=== PATIENT | male | born 1965 | race Caucasian/White ===

== ENCOUNTER 2017-01-16 16:13 | Emergency (ER) | payer OTHER, BC ==
[~2017-01-16] VITALS: Ht 177.8 cm; Wt 112.0 kg
[~2017-01-16 16:13] MED LIST: ASPI-558 PO; CHON250C PO; DEXA4VIA IV; INSU100V20; INSU100V28 SQ; LISI-621 PO; LISI1TAB11 PO; METF-206 PO; MORP2SYR2 IV; NAPR220T61 PO
[2017-01-16 16:16] VITALS: Ht 177.8 cm; Wt 112.0 kg
--- NOTE | 2017-01-16 16:16 | NUR ---
PROVIDER Kira MARTELL APRN AT BEDSIDE FOR EXAM.
--- OUTSIDE RECORDS SUMMARY | 2017-01-16 16:17 | XMS REPORT | CCD ---
Author Author LAVERN RAZA Organization Unknown Address [address], [place] [id number] Phone 0 Care Team Providers Care Masticator Name Role Phone MICHELLE DE JESUS Attending Physician 0 Vital Signs Unknown or Not Available. Allergies Unknown or Not Available. Procedures Unknown or Not Available. History of Immunizations Unknown or Not Available. Problems Unknown or Not Available. Results COMP METABOLIC - Collect Date/Time: 02/14/2016 09:00 Test Name Code Test Result Test Units Test Ref Range GLUCOSE 136 mg/dL L=70 H=110 BUN 22 mg/dL L=7 H=18 CREATININE 1.00 mg/ dL L=0.60 H=1.30 AGE 50 YEARS GFR 78.8 SODIUM 137 mmol/L L=136 H=145 POTASSIUM 3.8 mmol/ L L=3.5 H=5.1 CHLORIDE 101 mmol/L L=98 H=107 CO2 25 mmol/L L=21 H=32 CALCIUM 9.3 mg/dL L=8.5 H=10.1 AST 17 U/L L=15 H=37 ALT 47 U/L L=12 H=78 ALKALINE PHOS 88 U/ L L=46 H=116 TOTAL PROTEIN 8.1 g/ dL L=6.4 H=8.2 ALBUMIN 4.2 g/dL L=3.4 H=5.0 TOTAL BILI 0.40 mg/ dL L=0.00 H=1.00 LDL CHOLESTEROL, DIRECT - Collect Date/Time: 02/14/2016 09:00 Test Name Code Test Result Test Units Test Ref Range LDL, DIRECT 112 mg/ dL L=0 H=100 LIPID PANEL - Collect Date/Time: 02/14/2016 09:00 Test Name Code Test Result Test Units Test Ref Range CHOLESTEROL 201 mg/ dL L=0 H=200 TRIGLYCERIDES 448 mg /dL L=30 H=150 HDL 29 mg/dL L=40 H=60 VLDL 90 mg/dL L=0 H=40 CHOL/HDL RISK 6.9 RATIO L=0.0 H=5.0 PT FASTING: YES N/A TRIG >400 NO LDL CALC N/A LDL, CALC N/A N/A Active Medications Unknown or Not Available. Medications Administered During Visit Unknown or Not Available. Encounters Encounter Diagnosis Diagnosis Code Start Date Pure hypercholesterolemia E780 2015 Social History Smoking Status Code Start Date End Date Current some day smoker [id number] Patient Decision Aids Unknown or Not Available. Discharge Instructions You were admitted to [facility] on 02/14/2016 09:11 with a principal diagnosis of Pure hypercholesterolemia You had the following tests done: COMP METABOLIC LDL CHOLESTEROL, DIRECT LIPID PANEL You were discharged from [facility] on 02/14/2016 09:11 Should you have any questions prior to discharge, please contact a member of your healthcare team. If you have left the hospital and have any questions, please contact your primary care physician. Chief Complaint and Reason For Visit Chief Complaint Date of Onset LAB Function Status Unknown or Not Available. Plan of Care Unknown or Not Available. Referral/Transition of Care Unknown or Not Available.
--- OUTSIDE RECORDS SUMMARY | 2017-01-16 16:17 | XMS REPORT ---
Author Emely Acevedo [facility] eClinicalWorks Address Unknown Phone Unavailable Care Team Providers Care Honing Job Setter Name Role Phone Emely Burrows CP Unavailable Allergies, Adverse Reactions, Alerts Substance Reaction Event Type N.K.D.A. Info Not Available Non Drug Allergy Problems Problem Type Condition ICD-9 Code Onset Dates Condition Status Problem Pure hypercholesterolemia 272.0 Active Problem Other and unspecified hyperlipidemia 272.4 Active Problem Unspecified essential hypertension 401.9 Active Assessment Impotence of organic origin 607.84 Active Problem Diabetes with other specified manifestations, type II or unspecified type, not stated as uncontrolled 250.80 Active Assessment Diabetes Mellitus Type 2, not stated as uncontrolled 250.00 Active Medications Medication Code System Code Instructions Start Date End Date Status Dosage Lisinopril-Hydrochlorothiazide [facility] [address]-30 20-25 MG Orally Once a day Takeone (1)tablet(s)daily Lipitor [facility] [address]-10 40 Milligram Takeone (1)tablet(s)daily Cialis [facility] [address]-24 20 MG Orally March 15, 2015 May 14, 2015 1 tablet Glucophage [facility] [address]-01 1000 MG Orally Twice a day 1 tablet with meals Lisinopril [facility] [address]-33 20 Milligram Orally Once a day 1 tablet Aspirin [facility] [address]-34 81 MG Orally Once a day 1 tablet Tricor [facility] [address]-26 145 MG Orally Once a day 1 tablet NovoLog [facility] [address]-71 100 UNIT/ML Subcutaneous with meals 1 unit per 10 carbs Lantus [facility] [address]-90 100 UNIT/ML Subcutaneous twice a day 80 units Procedures Procedure Coding System Code Date OFFICE VISIT, EST-LOW COMPLEXITY (15 MIN.) CPT-4 38485 March 15, 2015 HEMOGLOBIN A1C, IN HOUSE CPT-4 42520 March 15, 2015 Vital Signs Date/Time: March 15, 2015 Height 70 in Weight 224 lbs Temperature 99.0 F Blood Pressure Diastolic 70 mm Hg Blood Pressure Systolic 120 mm Hg Cardiac Monitoring Heart Rate 88 /min BMI 32.14 Index Respiratory Rate 16 /min Results Name Result Date Reference Range Unit Abnormality Flag In House HB A1c Summary Purpose eClinicalWorks Submission
--- OUTSIDE RECORDS SUMMARY | 2017-01-16 16:17 | XMS REPORT ---
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 Assessment Hyperlipidemia, unspecified E78.5 Active Problem Type 2 diabetes mellitus without complications E11.9 Active Problem Hypertension, benign 401.1 Active Problem 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 Problem Other and unspecified hyperlipidemia 272.4 Active Problem Diabetes with other specified manifestations, type II or unspecified type, not stated as uncontrolled 250.80 Active Problem Unspecified essential hypertension 401.9 Active Problem Pure hypercholesterolemia 272.0 Active Medications Medication Code System Code Instructions Start Date End Date Status Dosage Baclofen [facility] [address]-17 10 MG Orally Three times a day Nov 09, 2016 1 tablet with food or milk Tricor [facility] 41742160756 145 MG Orally Once a day TAKE ONE (1) TABLET(S) DAILY Lisinopril [facility] [address]-33 20 MG Orally Once a day 1 tablet Fish Oil [facility] [address]-51 1000 MG Orally twice a day Jul 10, 2016Jul 2 capsules potassium ND 0 Oral 1 tab Aspirin [facility] [address]-66 81 MG Orally Once a day 1 tablet Potassium Chloride Olga ER [facility] 12293439257 20 MEQ TAKE ONE TABLET BY MOUTH DAILY Lantus [facility] [address]-35 100 UNIT/ML Subcutaneous Twice a day 44 units twice a day NovoLog [facility] [address]-49 100 UNIT/ML Subcutaneous with meals TID 1 unit per 5 carbs Glucophage [facility] 60180215129 1000 MG Orally Twice a day 1 tablet with meals Lisinopril-Hydrochlorothiazide [facility] [address]-63 20-12.5 MG Orally Once a day takeone (1)tablet(s)daily Gabapentin [facility] [address]-40 100 MG Orally Three times a day 2 caps Lidocaine [facility] [address]-43 5 % Externally q 12 hrs prn 1 patch to intact skin remove after 12 hours Magnesium [facility] 390[address]763 400 MG Orally not defined Procedures Procedure Coding System Code Date IH CMP CPT-4 78078 Jul 10, 2016 IH LIPID PANEL CPT-4 24307 Jul 10, 2016 COMPLETE CBC W/AUTO DIFF WBC CPT-4 10999 Jul 10, 2016 Results No Known Results Summary Purpose eClinicalWorks Submission
--- OUTSIDE RECORDS SUMMARY | 2017-01-16 16:17 | XMS REPORT ---
Author Erica Cueto [facility] [place] eClinicalWorks Address Unknown Phone Unavailable Care Team Providers Care Vp Sales Name Role Phone Erica Alejandro CP Unavailable Allergies No Known Allergies Problems Problem Type Condition ICD-9 Code Onset Dates Condition Status Assessment Colon cancer screening V76.51 Active Assessment Diabetes with other specified manifestations, type II or unspecified type, not stated as uncontrolled 250.80 Active Assessment Unspecified viral infection, in conditions classified elsewhere and of unspecified site 079.99 Active Problem Pure hypercholesterolemia 272.0 Active Problem Other and unspecified hyperlipidemia 272.4 Active Problem Unspecified essential hypertension 401.9 Active Assessment Pure hypercholesterolemia 272.0 Active Assessment Other and unspecified hyperlipidemia 272.4 Active Problem Diabetes with other specified manifestations, type II or unspecified type, not stated as uncontrolled 250.80 Active Assessment Unspecified essential hypertension 401.9 Active Medications Medication Code System Code Instructions Start Date End Date Status Dosage Lisinopril-Hydrochlorothiazide [facility] [address]-70 0 Active Takeone (1)tablet(s)daily Lipitor [facility] [address]-30 40 Milligram Active Takeone (1)tablet(s) daily NovoLog [facility] [address]-40 100 UNIT/ML Subcutaneous with meals Active 1 unit per [address] [facility] [address]-42 81 MG Orally Once a day Active [address] [facility] [address]-58 100 UNIT/ML Subcutaneous twice a day Active [address] [facility] [address]-69 1000 MG Orally Twice a day Active 1 tablet with meals Tricor [facility] [address]-69 145 MG Orally Once a day Active [address] [facility] [address]-85 20 MG Orally Once a day Active 1 tablet Procedures Procedure Coding System Code Date OFFICE VISIT, EST-LOW COMPLEXITY (15 MIN.) CPT-4 04534 Jul 14, 2014 HEMOGLOBIN A1C, IN HOUSE CPT-4 55342 Jul 14, 2014 Vital Signs Date/Time: Jul 14, 2014 Height 70 inches Weight 221.12 lbs Temperature 97.7 F Blood Pressure Diastolic 52 mm Hg Blood Pressure Systolic 90 mm Hg Cardiac Monitoring Heart Rate 88 Beats per Minute BMI 31.72 Index Respiratory Rate 16 per Minute Results Name Result Date Reference Range Unit In House Hemoglobin A1c Summary Purpose eClinicalWorks Submission
--- OUTSIDE RECORDS SUMMARY | 2017-01-16 16:17 | XMS REPORT | CCD ---
Author Author LAVERN RAZA Organization Unknown Address [address], [place] [id number] Phone 0 Care Team Providers Care Medical I D Sales Name Role Phone NORBERTO MILES Attending Physician 0 Vital Signs Unknown or Not Available. Allergies Unknown or Not Available. Procedures Unknown or Not Available. History of Immunizations Unknown or Not Available. Problems Unknown or Not Available. Results Unknown or Not Available. Active Medications Unknown or Not Available. Medications Administered During Visit Unknown or Not Available. Encounters Encounter Diagnosis Diagnosis Code Start Date Spinal stenosis, cervical region M4802 Social History Smoking Status Code Start Date End Date Current some day smoker [id number] Patient Decision Aids Unknown or Not Available. Discharge Instructions You were admitted to [facility] on 10/04/2015 with a principal diagnosis of Spinal stenosis, cervical region. Should you have any questions prior to discharge, please contact a member of your healthcare team. If you have left the hospital and have any questions, please contact your primary care physician. Chief Complaint and Reason For Visit Unknown or Not Available. Function Status Unknown or Not Available. Plan of Care Unknown or Not Available. Referral/Transition of Care Unknown or Not Available.
--- OUTSIDE RECORDS SUMMARY | 2017-01-16 16:17 | XMS REPORT ---
Author Author Erica Alejandro [facility] eClinicalWorks Address Unknown Phone Unavailable Care Team Providers Care Machine Setter Name Role Phone Erica Alejandro CP Unavailable Allergies No Known Allergies Problems Problem Type Condition Code Onset Dates Condition Status Problem Essential (primary) hypertension I10 Active Problem Hypertension, benign 401.1 Active Problem Unspecified essential hypertension 401.9 Active Problem Type 2 diabetes mellitus without complications E11.9 Active Problem Diabetes with other specified manifestations, type II or unspecified type, not stated as uncontrolled 250.80 Active Problem Hyperlipidemia, unspecified E78.5 Active Problem Pure hypercholesterolemia 272.0 Active Problem Other and unspecified hyperlipidemia 272.4 Active Medications No Known Medications Results No Known Results Summary Purpose eClinicalWorks Submission
--- OUTSIDE RECORDS SUMMARY | 2017-01-16 16:17 | XMS REPORT | CCD ---
Author Author LAVERN RAZA Organization Unknown Address [address], [place] [id number] Phone 0 Care Team Providers Care Medical Sales Consultant Name Role Phone MICHELLE DE JESUS Attending Physician 0 Vital Signs Unknown or Not Available. Allergies Unknown or Not Available. Procedures Unknown or Not Available. History of Immunizations Unknown or Not Available. Problems Unknown or Not Available. Results COMP METABOLIC - Collect Date/Time: 11/08/2015 11:39 Test Name Code Test Result Test Units Test Ref Range GLUCOSE 217 mg/dL L=70 H=110 BUN 15 mg/dL L=7 H=18 CREATININE 0.80 mg/ dL L=0.60 H=1.30 AGE 50 YEARS GFR 108.3 SODIUM 137 mmol/L L=136 H=145 POTASSIUM 3.9 mmol/ L L=3.5 H=5.1 CHLORIDE 101 mmol/L L=98 H=107 CO2 26 mmol/L L=21 H=32 CALCIUM 9.0 mg/dL L=8.5 H=10.1 AST 15 U/L L=15 H=37 ALT 39 U/L L=12 H=78 ALKALINE PHOS 89 U/ L L=46 H=116 TOTAL PROTEIN 7.7 g/ dL L=6.4 H=8.2 ALBUMIN 3.9 g/dL L=3.4 H=5.0 TOTAL BILI 0.40 mg/ dL L=0.00 H=1.00 LIPID PANEL - Collect Date/Time: 11/08/2015 11:39 Test Name Code Test Result Test Units Test Ref Range CHOLESTEROL 190 mg/ dL L=0 H=200 TRIGLYCERIDES 266 mg /dL L=30 H=150 HDL 34 mg/dL L=40 H=60 LDL, CALC 103 mg/dL L=0 H=100 VLDL 53 mg/dL L=0 H=40 CHOL/HDL RISK 5.6 RATIO L=0.0 H=5.0 PT FASTING: YES N/A TSH - Collect Date/Time: 11/08/2015 11:39 Test Name Code Test Result Test Units Test Ref Range TSH 1.25 uIU/mL L=0.36 H=3.74 CBC W/ DIFF - Collect Date/Time: 11/08/2015 11:39 Test Name Code Test Result Test Units Test Ref Range WBC 6.4 x10^3 L=4.8 H=10.8 RBC 4.96 x10^6 L=4.70 H=6.10 HEMOGLOBIN 14.7 g/ dL L=14.0 H=18.0 HEMATOCRIT 43.3 % L=42.0 H=52.0 MCV 87 fL L=80 H=100 MCH 29.6 pg L=27.0 H=33.0 MCHC 33.9 g/dL L=33.0 H=37.0 RDW 13.0 % L=11.5 H=14.5 PLATELETS 273 x10^3 L=150 H=450 MPV 7.9 fL L=7.8 H=11.0 NEUTROPHILS 54.1 % L=40.0 H=80.0 LYMPHOCYTES 33.5 % L=20.0 H=45.0 MONOCYTES 8.9 % L=0.0 H=10.0 EOSINOPHILS 2.8 % L=0.0 H=5.0 BASOPHILS 0.7 % L=0.0 H=2.0 REFLEX MAN DIFF NO N /A Active Medications Unknown or Not Available. Medications Administered During Visit Unknown or Not Available. Encounters Encounter Diagnosis Diagnosis Code Start Date Type 2 diabetes mellitus without complications E119 11/08/2015 Social History Smoking Status Code Start Date End Date Current some day smoker [id number] Patient Decision Aids Unknown or Not Available. Discharge Instructions You were admitted to [facility] on 11/08/2015 with a principal diagnosis of Type 2 diabetes mellitus without complications. You were discharged from [facility] on 11/08/2015. Should you have any questions prior to [...]
--- OUTSIDE RECORDS SUMMARY | 2017-01-16 16:17 | XMS REPORT ---
Author Author Erica Alejandro [facility] eClinicalWorks Address Unknown Phone Unavailable Care Team Providers Care Business Continuity Global Director Name Role Phone Erica Alejandro CP Unavailable Allergies No Known Allergies Problems Problem Type Condition ICD-9 Code Onset Dates Condition Status Problem Pure hypercholesterolemia 272.0 Active Problem Other and unspecified hyperlipidemia 272.4 Active Problem Unspecified essential hypertension 401.9 Active Problem Diabetes with other specified manifestations, type II or unspecified type, not stated as uncontrolled 250.80 Active Medications No Known Medications Vital Signs Date/Time: Jul 14, 2014 Height 70 inches Weight 221.12 lbs Temperature 97.7 F Blood Pressure Diastolic 52 mm Hg Blood Pressure Systolic 90 mm Hg Cardiac Monitoring Heart Rate 88 Beats per Minute BMI 31.72 Index Respiratory Rate 16 per Minute Results No Known Results Summary Purpose eClinicalWorks Submission
--- OUTSIDE RECORDS SUMMARY | 2017-01-16 16:18 | XMS REPORT ---
Author Erica Cueto [facility] eClinicalWorks Address Unknown Phone Unavailable Care Team Providers Care Urologist Name Role Phone Erica Alejandro CP Unavailable Allergies, Adverse Reactions, Alerts Substance Reaction Event Type statins muscle weaknes, joint pain Non Drug Allergy Problems Problem Type Condition Code Onset Dates Condition Status Assessment Hyperlipidemia, unspecified E78.5 Active Problem Essential (primary) hypertension I10 Active Assessment Type 2 diabetes mellitus without complications E11.9 Active Assessment Essential (primary) hypertension I10 Active Problem Hypertension, benign 401.1 Active Problem Unspecified essential hypertension 401.9 Active Problem Type 2 diabetes mellitus without complications E11.9 Active Problem Diabetes with other specified manifestations, type II or unspecified type, not stated as uncontrolled 250.80 Active Problem Hyperlipidemia, unspecified E78.5 Active Problem Pure hypercholesterolemia 272.0 Active Problem Other and unspecified hyperlipidemia 272.4 Active Medications Medication Code System Code Instructions Start Date End Date Status Dosage Tricor [facility] 29308527099 145 MG Orally Once a day TAKE ONE (1) TABLET(S) DAILY Fenofibrate [facility] [address]-86 145 MG Orally Once a day Nov 15, 2015 1 tablet NovoLog [facility] [address]-09 100 UNIT/ML Subcutaneous with meals TID 1 unit per 10 carbs Baclofen [facility] [address]-72 10 MG Orally Three times a day Nov 09, 2016 1 tablet with food or milk Glucophage [facility] 80041865617 1000 MG Orally Twice a day 1 tablet with meals Lisinopril-Hydrochlorothiazide [facility] [address]-86 20-12.5 MG Orally Once a day takeone (1)tablet(s)daily Lantus [facility] [address]-13 100 UNIT/ML Subcutaneous Twice a day 80 units twice a day Gabapentin [facility] [address]-88 100 MG Orally Three times a day 2 caps Lidocaine [facility] [address]-02 5 % Externally q 12 hrs prn 1 patch to intact skin remove after 12 hours Magnesium [facility] 41846-[address]55 400 MG Orally not defined potassium NDC 0 Oral 1 tab Lisinopril [facility] [address]-90 20 MG Orally Once a day 1 tablet Procedures Procedure Coding System Code Date OFFICE VISIT, EST-LOW COMPLEXITY (15 MIN.) CPT-4 39279 May 22, 2016 HEMOGLOBIN A1C, IN HOUSE CPT-4 28827 May 22, 2016 Vital Signs Date/Time: May 22, 2016 Temperature 98.4 F Height 70 in Weight 229.8 lbs Blood Pressure Diastolic 80 mm Hg Blood Pressure Systolic 122 mm Hg Cardiac Monitoring Heart Rate 68 /min BMI 32.97 Index Oximetry 98 % Respiratory Rate 16 /min Results No Known Results Summary Purpose eClinicalWorks Submission
--- OUTSIDE RECORDS SUMMARY | 2017-01-16 16:18 | XMS REPORT ---
Author Author Erica Alejandro [facility] eClinicalWorks Address Unknown Phone Unavailable Care Team Providers Care Regular Senior Care Provider Name Role Phone Erica Alejandro CP Unavailable [...]
--- OUTSIDE RECORDS SUMMARY | 2017-01-16 16:18 | XMS REPORT ---
Author Author Erica Alejandro [facility] eClinicalWorks Address Unknown Phone Unavailable Care Team Providers Care Poultry Hatchery Supervisor Name Role Phone Erica Alejandro CP Unavailable [...]
--- OUTSIDE RECORDS SUMMARY | 2017-01-16 16:18 | XMS REPORT ---
Author Ryan Vargas Organization eClinicalWorks Address Unknown Phone Unavailable Care Team Providers Care Engineer Design And Construction Name Role Phone Ryan Sullivan CP Unavailable Allergies, Adverse Reactions, Alerts Substance Reaction Event Type N.K.D.A. Info Not Available Non Drug Allergy Problems Problem Type Condition ICD-9 Code Onset Dates Condition Status Assessment Hypertension, benign 401.1 Active Assessment Hypoglycemia, unspecified 251.2 Active Problem Hypertension, benign 401.1 Active Problem Unspecified essential hypertension 401.9 Active Problem Diabetes Mellitus Type 2, not stated as uncontrolled 250.00 Active Problem Diabetes with other specified manifestations, type II or unspecified type, not stated as uncontrolled 250.80 Active Assessment Diabetes Mellitus Type 2, not stated as uncontrolled 250.00 Active Problem Pure hypercholesterolemia 272.0 Active Problem Other and unspecified hyperlipidemia 272.4 Active Medications Medication Code System Code Instructions Start Date End Date Status Dosage Aspirin [facility] [address]-66 81 MG Orally Once a day 1 tablet Lantus [facility] [address]-47 100 UNIT/ML Subcutaneous as directed 80 units in the am and 70 units in the pm. do this daily. Lisinopril [facility] [address]-36 20 Milligram Orally Once a day 1 tablet Glucophage [facility] 94133104266 1000 MG TAKE ONE (1) TABLET(S) TWICE DAILY Cialis [facility] [address]-95 20 MG Orally March 15, 2015 May 14, 2015 1 tablet Lipitor [facility] [address]-71 40 Milligram Takeone (1)tablet(s)daily Tricor [facility] [address]-71 145 MG Orally Once a day 1 tablet Lisinopril-Hydrochlorothiazide [facility] [address]-90 20-25 MG Orally Once a day Takeone (1)tablet(s)daily NovoLog [facility] [address]-68 100 UNIT/ML Subcutaneous with meals 1 unit per 10 carbs Procedures Procedure Coding System Code Date OFFICE VISIT, EST-MOD. COMPLEXITY (25 MIN) CPT-4 14595 May 12, 2015 Vital Signs Date/Time: May 12, 2015 Height 70 in Weight 230.8 lbs Temperature 97.8 F Blood Pressure Diastolic 64 mm Hg Blood Pressure Systolic 122 mm Hg Cardiac Monitoring Heart Rate 70 /min BMI 33.11 Index Respiratory Rate 16 /min Results No Known Results Summary Purpose eClinicalWorks Submission
--- OUTSIDE RECORDS SUMMARY | 2017-01-16 16:18 | XMS REPORT ---
Author Author Erica Alejandro [facility] eClinicalWorks Address Unknown Phone Unavailable Care Team Providers Care Sales Lead Generator Name Role Phone Erica Alejandro CP Unavailable Allergies No Known Allergies Problems Problem Type Condition ICD-9 Code Onset Dates Condition Status Problem Pure hypercholesterolemia 272.0 Active Problem Other and unspecified hyperlipidemia 272.4 Active Problem Unspecified essential hypertension 401.9 Active Problem Diabetes with other specified manifestations, type II or unspecified type, not stated as uncontrolled 250.80 Active Medications Medication Code System Code Instructions Start Date End Date Status Dosage Tricor [facility] [address]-13 145 MG Orally Once a day Active 1 tablet Vital Signs Date/Time: Jul 14, 2014 Height 70 inches Weight 221.12 lbs Temperature 97.7 F Blood Pressure Diastolic 52 mm Hg Blood Pressure Systolic 90 mm Hg Cardiac Monitoring Heart Rate 88 Beats per Minute BMI 31.72 Index Respiratory Rate 16 per Minute Results No Known Results Summary Purpose eClinicalWorks Submission
--- OUTSIDE RECORDS SUMMARY | 2017-01-16 16:18 | XMS REPORT ---
Author Author Erica Alejandro [facility] eClinicalWorks Address Unknown Phone Unavailable Care Team Providers Care Machine Installer Name Role Phone Erica Alejandro CP Unavailable Allergies No Known Allergies Problems Problem Type Condition Code Onset Dates Condition Status Problem Hyperlipidemia, unspecified E78.5 Active Problem Essential (primary) hypertension I10 Active Problem Type 2 diabetes mellitus without [...] Start Date End Date Status Dosage Baclofen [facility] [address]-28 10 MG Orally Three times a day December 01, 2016 1 tablet with food or milk Magnesium [facility] 56[address] 400 MG Orally Once a day December 01, 2016 1 capsule with a meal Results No Known Results Summary Purpose eClinicalWorks Submission
--- OUTSIDE RECORDS SUMMARY | 2017-01-16 16:18 | XMS REPORT ---
Author Author Erica Alejandro [facility] eClinicalWorks Address Unknown Phone Unavailable Care Team Providers Care Restaurant Management Internship Name Role Phone Erica Alejandro CP Unavailable Allergies No Known Allergies Problems Problem Type Condition Code Onset Dates Condition Status Assessment Type 2 diabetes mellitus without complications E11.9 Active Problem Essential (primary) hypertension I10 Active Assessment Essential (primary) hypertension I10 Active Assessment Hypomagnesemia E83.42 Active Problem Hypertension, benign 401.1 Active Problem [...] Instructions Start Date End Date Status Dosage Magnesium [facility] [address] 400 MG Orally not defined potassium ND 0 Oral 1 tab Fenofibrate [facility] [address]-73 145 MG Orally Once a day Nov 15, 2015 1 tablet Gabapentin [facility] [address]-05 100 MG Orally Three times a day 2 caps Glucophage [facility] 30321331585 1000 MG Orally Twice a day 1 tablet with meals Lantus [facility] [address]-05 100 UNIT/ML Subcutaneous Twice a day 80 units twice a day Tricor [facility] 65835042630 145 MG Orally Once a day TAKE ONE (1) TABLET(S) DAILY Lisinopril [facility] [address]-39 20 MG Orally Once a day 1 tablet Lidocaine [facility] [address]-22 5 % Externally q 12 hrs prn 1 patch to intact skin remove after 12 hours Lisinopril-Hydrochlorothiazide [facility] [address]-34 20-12.5 MG Orally Once a day takeone (1)tablet(s)daily Baclofen [facility] [address]-59 10 MG Orally Three times a day Nov 09, 2016 1 tablet with food or milk NovoLog [facility] [address]-96 100 UNIT/ML Subcutaneous with meals TID 1 unit per 10 carbs Procedures Procedure Coding System Code Date IH MicroAlb/Creat Ratio, Urine CPT-4 60304 May 22, 2016 COMPLETE CBC W/AUTO DIFF WBC CPT-4 23491 May 22, 2016 IH MicroAlb/Creat Ratio, Urine CPT-4 31544 May 22, 2016 MAGNESIUM CPT-4 11833 May 22, 2016 COMPREHENSIVE METABOLIC PANEL CPT-4 54923 May 22, 2016 HEMOGLOBIN A1C, IN HOUSE CPT-4 24089 May 22, 2016 TSH CPT-4 44690 May 22, 2016 Results Name Result Date Reference Range Unit Abnormality Flag Comprehensive Metabolic Panel (CMP) ----Alkaline Phosphatase 71 [id number] 40-150 U/L ----Bilirubin Total 0.7 57761234 0.2-1.2 mg/dL ----Creatinine 0.85 45974430 0.72-1.25 mg/dL ----Calcium 9.9 53867041 8.9-10.5 mg/dL ----Sodium 137 75927293 135-144 mEq/L ----Globulin 3.0 17481649 1.8-4.0 g/dL ----Potassium 4.8 66006130 3.5-5.2 mEq/L ----Anion Gap 10 26648726 3-20 ----Chloride 100 08095812 99-111 mEq/L ----AST (SGOT) 32 40937644 5-34 U/L ----CO2 27 22584417 23-31 mEq/L ----Glucose 145 59962976 70-99 mg/dL H ----Albumin 4.9 87551987 3.5-5.0 g/dL ----ALT (SGPT) 51 56467562 0-55 U/L ----BUN 16 63988556 8-26 mg/dL ----Protein 7.9 40868764 6.1-7.7 g/dL H CBC With Platelet and Differential ----Absolute Monocytes 0.49 23279378 0.30-1.00 10*3 ----MCV 83.9 51249054 82.0-99.0 fL ----HCT 45.8 23204712 42.0-52.0 % ----Absolute Lymphocytes 2.83 48077189 0.80-3.30 10*3 ----MCHC 36.0 89673031 32.0-36.0 g/dL ----Absolute Neutrophils 3.36 86180779 1.90-7.00 10*3 ----MCH 30.2 09366093 27.0-32.0 pg ----Immature Granulocytes 0.1 29639349 0.0-1.0 % ----Lymphocytes 41 33805820 20-46 % ----WBC 6.9 70548784 4.8-10.8 K/uL ----Neutrophils 49 58791436 51-75 % L ----Absolute Basophils 0.04 57994600 0.00-0.20 10*3 ----HGB 16.5 64021522 14.0-18.0 g/dL ----Absolute Eosinophils 0.14 34708344 0.00-0.50 10*3 ----RBC 5.46 18109799 4.60-6.20 10*6/uL ----Basophils 1 21448421 0-2 % ----Eosinophils 2 02103342 0-4 % ----Platelet Count 296 55237645 150-400 K/uL ----Monocytes 7 88937774 4-11 % ----RDW 13.2 33089758 11.5-14.5 % ----MPV 10.4 59827111 8.8-14.8 fL In House HB A1c ----Hemoglobin A1c 8.6 14250437 In House Microalb/Creat Ratio, Urine ----Microalbum.,U,Random >300.0 05633381 ----Microalb/Creat Ratio >286.0 43630829 ----Creatinine, Urine 104.9 69243046 eGFR ----eGFR >60 36356477 >60 mL/min TSH ----TSH 1.34 99589366 0.35-4.94 uIU/mL Magnesium ----Magnesium 2.4 47987952 1.6-2.6 mg/dL Summary Purpose eClinicalWorks Submission
--- OUTSIDE RECORDS SUMMARY | 2017-01-16 16:18 | XMS REPORT ---
Author Author Erica Alejandro [facility] eClinicalWorks Address Unknown Phone Unavailable Care Team Providers Care Fisher Diving Name Role Phone Erica Alejandro Unavailable Allergies No Known Allergies Problems Problem Type Condition Code Onset Dates Condition Status Problem Pure hypercholesterolemia 272.0 Active Problem Other and unspecified hyperlipidemia 272.4 Active Problem Unspecified essential hypertension 401.9 Active Problem Diabetes with other specified manifestations, type II or unspecified type, not stated as uncontrolled 250.80 Active Medications Medication Code System Code Instructions Start Date End Date Status Dosage NovoLog [facility] [address]-81 100 UNIT/ML Subcutaneous with meals 1 unit per 10 carbs Results No Known Results Summary Purpose eClinicalWorks Submission
--- OUTSIDE RECORDS SUMMARY | 2017-01-16 16:18 | XMS REPORT | CCD ---
Author Author LAVERN RAZA Organization Unknown Address [address], [place] [address] Phone 0 Care Team Providers Care Manager Software Name Role Phone IMCHELLE DE JESUS Attending Physician 0 Vital Signs [...] Date End Date Current some day smoker [id number] Patient Decision Aids Unknown or Not Available. Discharge Instructions You were admitted to [facility] on 02/14/2016 09:11 with a principal diagnosis of Pure hypercholesterolemia You had the following tests done: COMP METABOLIC LDL CHOLESTEROL, DIRECT LIPID PANEL You were discharged from [facility] on 02/14/2016 09:11 Should you have any [...]
--- OUTSIDE RECORDS SUMMARY | 2017-01-16 16:18 | XMS REPORT | CCD ---
Author Author LAVERN RAZA Organization Unknown Address [address], [place] [address] Phone 0 Care Team Providers Care Information Technology Technician Name Role Phone LIDA DELUCA Attending Physician [phone] Vital Signs Unknown or Not Available. Allergies [...] Date End Date Current some day smoker [id number] Patient Decision Aids Unknown or Not Available. Discharge Instructions You were admitted to [facility] on 10/11/2015 with a principal diagnosis of Spinal stenosis, cervical region. You were discharged from [facility] on 10/11/2015. Should you have any questions prior to discharge, please contact a member of your healthcare team. If you have left the hospital and have any questions, please contact your primary care physician. Chief Complaint and Reason For Visit Chief Complaint Date of Onset XR CERV SPINE Function Status Unknown or Not Available. Plan of Care Unknown or Not Available. Referral/Transition of Care Unknown or Not Available.
--- OUTSIDE RECORDS SUMMARY | 2017-01-16 16:18 | XMS REPORT | CCD ---
Author Author LAVERN RAZA Organization Unknown Address [address] [place] [address], [place] [id number] Phone 0 Care Team Providers Care Blood Bank Booking Clerk Name Role Phone MICHELLE DE JESUS Attending Physician 0 Vital Signs Unknown or Not Available. Allergies Unknown or Not Available. Procedures Unknown or Not Available. History of Immunizations Unknown or Not Available. Problems Unknown or Not Available. Results LIPID PANEL - Collect Date/Time: 02/22/2016 09:10 Test Name Code Test Result Test Units Test Ref Range CHOLESTEROL 204 mg/ dL L=0 H=200 TRIGLYCERIDES 273 mg /dL L=30 H=150 HDL 34 mg/dL L=40 H=60 LDL, CALC 115 mg/dL L=0 H=100 VLDL 55 mg/dL L=0 H=40 CHOL/HDL RISK 6.0 RATIO L=0.0 H=5.0 PT FASTING: YES N/A Active Medications Unknown or Not Available. Medications Administered During Visit Unknown or Not Available. Encounters Unknown or Not Available. Social History Smoking Status Code Start Date End Date Current some day smoker [id number] Patient Decision Aids Unknown or Not Available. Discharge Instructions You were admitted to [facility] on 02/22/2016 09:05 You had the following tests done: LIPID PANEL You were discharged from [facility] on 02/22/2016 09:05 Should you have any questions prior to [...]
--- OUTSIDE RECORDS SUMMARY | 2017-01-16 16:18 | XMS REPORT ---
Author Author Erica Alejandro [facility] eClinicalWorks Address Unknown Phone Unavailable Care Team Providers Care Petroleum Refining Firer Name Role Phone Erica Alejandro CP Unavailable Allergies No Known Allergies Problems Problem Type Condition Code Onset Dates Condition Status Problem Hypertension, benign 401.1 Active Problem Unspecified essential hypertension 401.9 Active Problem Type 2 diabetes mellitus without complications E11.9 Active Problem Diabetes with other specified manifestations, type II or unspecified type, not stated as uncontrolled 250.80 Active Problem Pure hypercholesterolemia 272.0 Active Problem Other and unspecified hyperlipidemia 272.4 Active Medications No Known Medications Results No Known Results Summary Purpose eClinicalWorks Submission
--- OUTSIDE RECORDS SUMMARY | 2017-01-16 16:18 | XMS REPORT ---
Author Author Erica Alejandro [facility] eClinicalWorks Address Unknown Phone Unavailable Care Team Providers Care Circus Laborer Name Role Phone Erica Alejandro CP Unavailable [...] Start Date End Date Status Dosage NovoLog [facility] [address]-43 100 UNIT/ML Subcutaneous with meals TID 1 unit per 10 carbs Lantus [facility] [address]-85 100 UNIT/ML Subcutaneous Twice a day 80 units twice a day Results No Known Results Summary Purpose eClinicalWorks Submission
--- OUTSIDE RECORDS SUMMARY | 2017-01-16 16:18 | XMS REPORT ---
Author Author Erica Alejandro [facility] eClinicalWorks Address Unknown Phone Unavailable Care Team Providers Care Copper Miner Blasting Name Role Phone Erica Alejandro CP Unavailable [...]
--- OUTSIDE RECORDS SUMMARY | 2017-01-16 16:18 | XMS REPORT ---
Author Author Erica Alejandro [facility] eClinicalWorks Address Unknown Phone Unavailable Care Team Providers Care Bumper Machine Operator Name Role Phone Erica Alejandro Unavailable Allergies [...] Start Date End Date Status Dosage NovoLog [facility] [address]-01 100 UNIT/ML Subcutaneous with meals Active 1 unit per 10 carbs Vital Signs Date/Time: Jul 14, 2014 Height 70 inches Weight 221.12 lbs Temperature 97.7 F Blood Pressure Diastolic 52 mm Hg Blood Pressure Systolic 90 mm Hg Cardiac Monitoring Heart Rate 88 Beats per Minute BMI 31.72 Index Respiratory Rate 16 per Minute Results No Known Results Summary Purpose eClinicalWorks Submission
--- OUTSIDE RECORDS SUMMARY | 2017-01-16 16:18 | XMS REPORT | CCD ---
Author Author LAVERN RAZA Organization Unknown Address [address] [place], [place] [id number] Phone 0 Care Team Providers Care Research Pharmacist Name Role Phone LIDA DELUCA Attending Physician [phone] Vital Signs Unknown or Not Available. Allergies [...] Date End Date Current some day smoker [id number] Patient Decision Aids Unknown or Not Available. Discharge Instructions You were admitted to [facility] on 02/28/2016 09:08 with a principal diagnosis of Spinal stenosis, cervical region You were discharged from [facility] on 02/28/2016 09:09 Should you have any questions prior to [...]
--- OUTSIDE RECORDS SUMMARY | 2017-01-16 16:18 | XMS REPORT ---
Author Author Erica Alejandro [facility] eClinicalWorks Address Unknown Phone Unavailable Care Team Providers Care Performing Artist Name Role Phone Erica Alejandro CP Unavailable [...] Instructions Start Date End Date Status Dosage Lisinopril [facility] [address]-46 20 Milligram Orally Once a day 1 tablet Vital Signs Date/Time: Jul 14, 2014 Height 70 inches Weight 221.12 lbs Temperature 97.7 F Blood Pressure Diastolic 52 mm Hg Blood Pressure Systolic 90 mm Hg Cardiac Monitoring Heart Rate 88 Beats per Minute BMI 31.72 Index Respiratory Rate 16 per Minute Results No Known Results Summary Purpose eClinicalWorks Submission
--- OUTSIDE RECORDS SUMMARY | 2017-01-16 16:19 | XMS REPORT | CCD ---
Author Author LAVERN RAZA Organization Unknown Address [address], [place] [address] Phone 0 Care Team Providers Care Barrel Cleaner Name Role Phone LIDA DELUCA Attending Physician [phone] Vital Signs Unknown or Not Available. Allergies [...] Date End Date Current some day smoker [id number] Patient Decision Aids Unknown or Not Available. Discharge Instructions You were admitted to [facility] on 09/21/2016 09:50 with a principal diagnosis of Spinal stenosis, cervical region You were discharged from [facility] on 09/21/2016 09:51 Should you have any questions prior to discharge, please contact a member of your healthcare team. If you have left the hospital and have any questions, please contact your primary care physician. Chief Complaint and Reason For Visit Chief Complaint Date of Onset CT CERV SPINE WO CONTR Function Status Unknown or Not Available. Plan of Care Unknown or Not Available. Referral/Transition of Care Unknown or Not Available.
--- OUTSIDE RECORDS SUMMARY | 2017-01-16 16:19 | XMS REPORT ---
Author Author Erica Alejandro [facility] eClinicalWorks Address Unknown Phone Unavailable Care Team Providers Care Ceramics Machine Operator Name Role Phone Erica Alejandro CP Unavailable [...] Instructions Start Date End Date Status Dosage Lantus [facility] [address]-12 100 UNIT/ML Subcutaneous as directed 80 units in the am and 70 units in the pm. do this daily. Results No Known Results Summary Purpose eClinicalWorks Submission
--- OUTSIDE RECORDS SUMMARY | 2017-01-16 16:19 | XMS REPORT | Continuity of Care Document ---
Author Author [facility] Organization [facility] Address Unknown Phone Unavailable Support Name Relationship Address Phone SRINI DAVIES MD Careg[place] [address] KIRSTEN WOODWARD MD Caregiver [facility] [address] [place] [address] [phone] LANDON CABRERA Next Of Kin [address] [place], [place] [id number] CP Insurance Providers Payer Name Policy Number Subscriber Name Relationship [employer] Other [id number] Dequan Cabrera 17 Self Advance Directives Directive Response Recorded Date/Time Ordered Resuscitation Status Full Code, unverified 09/17/14 12:32pm Resuscitation Documents on File Yes 09/17/14 11:39am Problems No known problems or medical conditions. Medications Medication Dose Route Sig Days/Qty Instructions Order Date Discontinued Date Status [Aspirin] NEEDED 03/16/09 06/14/10 Discontinued [Hctz] 03/16/09 06/14/10 Discontinued [Niacin] 03/16/09 06/14/10 Discontinued [Oral Diabetic Med] 03/16/09 06/14/10 Discontinued [Tylenol] NEEDED 03/16/09 06/14/10 Discontinued Glimepiride 4 Mg PO DAILY 03/16/09 06/14/10 Discontinued Insulin Aspart SLIDING SCALE W MEAL SLIDING SCALE 06/15/10 Active Pravastatin Sodium DAILY 06/15/10 10/15/10 Discontinued Lisinopril 1 Tab PO DAILY 06/15/10 05/18/12 Discontinued Sulfamethoxazole/Trimethoprim 1 Tab PO TWICE A DAY 06/15/10 Discontinued Pramlintide Acetate 120 Unit SQ THREE TIMES A DAY 10/15/10 01/23/12 Discontinued Metformin Hcl 1 Tab PO TWICE A DAY 01/23/12 Active Lisinopril 10 Mg PO DAILY 05/18/12 05/18/12 Discontinued Lisinopril 20 Mg PO DAILY 05/18/12 Active Aspirin 81 Mg PO DAILY 05/18/12 Active Guaifenesin 600 Mg PO TWICE A DAY 05/18/12 12/25/12 Discontinued Ciprofloxacin Hcl 500 Mg PO TWICE A DAY 3 Days 06/16/12 12/25/12 Discontinued Insulin Glargine 80 U SQ TWICE A DAY 12/25/12 Active Atorvastatin Calcium 1 Tab PO DAILY 30 Qty 09/17/14 Active Lisinopril/Hydrochlorothiazide 1 Tab PO DAILY 30 Qty 09/17/14 Active Social History Social History Problem Response Recorded Date/Time Chewing Tobacco Status Yes 12/25/2012 9:10am Hx Substance Use No 09/17/2014 11:23am Hx Alcohol Use Y 1-2 MONTHLY 09/17/2014 11:23am Has the pt used tobacco in the last 12 months No 09/17/2014 11:23am Query Response Start Date Stop Date Smoking Status Current some day smoker Hospital Discharge Instructions No hospital discharge instructions. Plan of Care No plan of care. Functional Status No functional status results. Allergies, Adverse Reactions, Alerts Allergen Type Severity Reaction Status Last Updated NKDA Allergy Unknown Active 12/25/12 Immunizations Name Given Type Hx Influenza Vaccination No Historical Hx Pneumococcal Vaccination No Historical Hx Tetanus, Diptheria, Pertussis No Historical Hx Influenza Vaccination No Historical Hx Tetanus, Diptheria, Pertussis No Historical Vital Signs Acute Vital Signs Vital Response Date/Time Temperature (Fahrenheit) 96.8 deg F (96.8 - 99.1) Temperature (Calculated Celsius) 36.51537 degrees C (36.0 - 37.3) Temperature Source Temporal Pulse Rate (adult) 66 bpm (60 - 100) Respiratory Rate 16 breaths/min (10 - 20) O2 Sat by Pulse Oximetry 100 % (90 - 100) Oxygen Delivery Method Room Air Blood Pressure 136/77 mm Hg Blood Pressure Source Automatic Cuff Height 5 ft 11 in Weight 237 lb Body Mass Index 33.0 kg/m^2 Results Test Source Date Result Interp. Ref. Range Comments Alanine Aminotransferase (ALT/SGPT) August 06, 2012 10:20am 53 U/L N 21-72 Albumin August 06, 2012 10:20am 4.8 G/DL N 3.5-5.0 Albumin/Globulin Ratio August 06, 2012 10:20am 1.4 RATIO N 1.1-2.2 Alkaline Phosphatase August 06, 2012 10:20am 96 U/L N 38-126 Anion Gap August 06, 2012 10:20am 13 MEQ/L N 5-15 Aspartate Amino Transf (AST/SGOT) August 06, 2012 10:20am 36 U/L N 17- 59 BUN/Creatinine Ratio August 06, 2012 10:20am 14 RATIO N 6-26 Basophils # (Auto) August 06, 2012 10:20am 0.0 T/MM3 N 0-0.2 Basophils (%) (Auto) August 06, 2012 10:20am 0.6 % N 0-2 Blood Urea Nitrogen August 06, 2012 10:20am 11.0 MG/DL N 9-20 Calcium Level August 06, 2012 10:20am 10.0 MG/DL N 8.4-10.2 Calculated Osmolality August 06, 2012 10:20am 273 MOSM/KG N 261-280 Carbon Dioxide Level August 06, 2012 10:20am 28 MEQ/L N 22-30 Chloride Level August 06, 2012 10:20am 99 MEQ/L N 98-107 Cholesterol Level August 06, 2012 10:20am 140 MG/DL N 132-199 Cholesterol/HDL Ratio August 06, 2012 10:20am 3.8 RATIO N 0-5.0 Conjugated Bilirubin May 18, 2012 2:56pm 0.00 MG/DL N 0.00-0.30 Creatinine August 06, 2012 10:20am 0.8 MG/DL N 0.8-1.5 Differential Total Cells Counted March 16, 2009 6:50pm 100 % - Eosinophils # (Auto) August 06, 2012 10:20am 0.2 T/MM3 N 0-0.5 Eosinophils (%) (Auto) August 06, 2012 10:20am 2.4 % N 0-4 Erythrocyte Sedimentation Rate June 14, 2010 9:35am 63 MM/HR H 0- 15 Free Thyroxine April 17, 2011 8:50am 1.10 NG/DL N 0.78-2.19 Globulin August 06, 2012 10:20am 3.5 G/DL N 2.4-3.6 Glucose Level August 06, 2012 10:20am 189 MG/DL H 75-110 Hematocrit August 06, 2012 10:20am 43.4 % N 41-53 Hemoglobin August 06, 2012 10:20am 14.7 GM/DL N 13.5-17.5 Hemoglobin A1c August 06, 2012 10:20am 9.2 % H 6-7 <6.0 NON-DIABETIC RANGE6.0-7.0 ADA THERAPEUTIC RANGE >7.0 ACTION SUGGESTED LDL Cholesterol, Calculated August 06, 2012 10:20am 103 N 66-159 Lymphocytes # (Auto) August 06, 2012 10:20am 2.4 T/MM3 N 1-4.8 Lymphocytes # (Manual) May 21, 2012 4:50am 2.6 T/MM3 N 1-4.8 Lymphocytes % (Manual) May 21, 2012 4:50am 26.0 % N 23-45 Lymphocytes (%) (Auto) August 06, 2012 10:20am 36.6 % N 23-45 Magnesium Level March 21, 2009 4:45am 1.8 MG/DL N 1.6-2.3 Mean Corpuscular Hemoglobin August 06, 2012 10:20am 29.1 UUG N 26-34 Mean Corpuscular Hemoglobin Concent August 06, 2012 10:20am 33.9 GM/DL N 31-37 Mean Corpuscular Volume August 06, 2012 10:20am 85.9 UM3 N 80-100 Mean Platelet Volume August 06, 2012 10:20am 10.4 UM3 N 9.4-12.4 Monocytes # (Auto) August 06, 2012 10:20am 0.5 T/MM3 N 0-0.8 Monocytes # (Manual) May 21, 2012 4:50am 0.8 T/MM3 N 0-0.8 Monocytes % (Manual) May 21, 2012 4:50am 8.0 % N 0-9.0 Monocytes (%) (Auto) August 06, 2012 10:20am 7.7 % N 0-9.0 Neutrophils # (Auto) August 06, 2012 10:20am 3.5 T/MM3 N 1.8-7.7 Neutrophils # (Manual) May 21, 2012 4:50am 6.5 T/MM3 N 1.8-7.7 Neutrophils % (Manual) May 21, 2012 4:50am 66.0 % N 33-66 Neutrophils (%) (Auto) August 06, 2012 10:20am 52.5 % N 33-66 Platelet Count August 06, 2012 10:20am 295 T/MM3 N 130-400 Potassium Level August 06, 2012 10:20am 4.1 MEQ/L N 3.6-5 RDW Standard Deviation August 06, 2012 10:20am 40.4 FL N 36.9-50.2 Red Blood Count August 06, 2012 10:20am 5.05 M/MM3 N 4.50-5.90 Sodium Level August 06, 2012 10:20am 140 MEQ/L N 134-144 Thyroid Stimulating Hormone (TSH) August 06, 2012 10:20am 1.61 MIU/L N 0.47-4.68 Total Bilirubin August 06, 2012 10:20am 0.50 MG/DL N 0.20-1.30 Total Protein August 06, 2012 10:20am 8.3 G/DL H 6.3-8.2 Total Testosterone March 22, 2010 9:45am Ref lab rpt scanned - --- [id number] ---TESTOT previously reported as: SEND OUT Triglycerides Level August 06, 2012 10:20am 144 MG/DL N 40-160 Unconjugated Bilirubin May 18, 2012 2:56pm 0.00 MG/DL N 0.00-1.10 Urine Bilirubin May 22, 2012 6:30pm Negative - Has specimen been collected/obtained? Y Urine Blood May 22, 2012 6:30pm Negative - Has specimen been collected/obtained? Y Urine Collection Type May 22, 2012 6:30pm Voided - Has specimen been collected/obtained? Y Urine Color May 22, 2012 6:30pm Yellow - Has specimen been collected/obtained? Y Urine Culture Indicated May 20, 2012 5:30pm Cult not indicated - Has specimen been collected/obtained? Y Urine Glucose (UA) May 22, 2012 6:30pm 2+ H - Has specimen been collected/obtained? Y Urine Ketones May 22, 2012 6:30pm Negative - Has specimen been collected/obtained? Y Urine Leukocyte Esterase May 22, 2012 6:30pm Negative - Has specimen been collected/obtained? Y Urine Microalbumin January 10, 2012 9:28am 96.4 MG/L H 0-17 Urine Nitrite May 22, 2012 6:30pm Negative - Has specimen been collected/obtained? Y Urine Protein May 22, 2012 6:30pm Negative - Has specimen been collected/obtained? Y Urine Specific [place] May 22, 2012 6:30pm 1.005 L - Has specimen been collected/obtained? Y Urine Turbidity May 22, 2012 6:30pm Clear - Has specimen been collected/obtained? Y Urine Urobilinogen May 22, 2012 6:30pm Normal EU/DL - Has specimen been collected/obtained? Y Urine pH May 22, 2012 6:30pm 7.0 - Has specimen been collected/ obtained? Y VLDL Cholesterol August 06, 2012 10:20am 28.8 MG/DL H 0-28 Vancomycin Level Trough March 25, 2009 6:50am 12.5 UG/ML L 15-20 White Blood Count August 06, 2012 10:20am 6.6 T/MM3 N 4.5-11.0 Glucometer May 23, 2012 5:28pm 171 mg/dL H 75-110 Lab Scanned Report August 06, 2012 1:19pm LAB TEST FORM REQUEST [id number] - HDL Cholesterol Direct August 06, 2012 10:20am 37 MG/DL L 40-60 Glomerular Filtration Rate Calc August 06, 2012 10:20am 103 - Immature Granulocyte # (Auto) August 06, 2012 10:20am 0.01 T/MM3 N 0.00-0.03 Immature Granulocyte % (Auto) August 06, 2012 10:20am 0.2 % N 0.0-0.5 Urine Microscopic Not Indicated May 22, 2012 6:30pm Not indicated - Has specimen been collected/obtained? Y Blood Culture Blood May 22, 2012 3:02pm NO GROWTH AFTER 5 DAYS Gram Stain Foot, Non-Surgical Site-Left June 14, 2010 12:15pm Procedures Procedure Status Date Provider(s) Colonoscopy completed 09/20/14 KIRSTEN WOODWARD MD
--- OUTSIDE RECORDS SUMMARY | 2017-01-16 16:19 | XMS REPORT | Continuity of Care Document ---
Author Author [facility] Organization [facility] Address Unknown Phone Unavailable Allergies Active Description Code Type Severity Reaction Onset Reported/Identified Relationship to Patient Clinical Status Yes No Known Contrast Allergies No Known Contrast Allergies Drug Allergy Unknown N/A 03/08/2008 Yes No Known Drug Allergies No Known Drug Allergies Drug Allergy Unknown N/A 03/08/2008 Yes No Known Drug Intolerances No Known Drug Intolerances Drug Allergy Unknown N/A 03/08/2008 Yes No Known Food Allergies No Known Food Allergies Drug Allergy Unknown N/A 03/08/2008 Yes NO KNOWN LATEX ALLERGY/SENSITI NO KNOWN LATEX ALLERGY/SENSITI Drug Allergy Unknown N/A 2007 Yes No Known Other Allergies No Known Other Allergies Drug Allergy Unknown N/A 03/08/2008 Yes No Known Allergies No Known Allergies Drug Allergy Unknown N/A 08/31/2015 Medications Problems Date Dx Coded Attending Type Code Diagnosis Diagnosed By 09/01/2015 Rashad Hi MD E11.9 TYPE 2 DIABETES MELLITUS WITHOUT COMPLICATIONS 09/01/2015 Rashad Hi MD E66.9 OBESITY, UNSPECIFIED 09/01/2015 Rashad Hi MD E78.5 HYPERLIPIDEMIA, UNSPECIFIED 09/01/2015 Rashad Hi MD E87.6 HYPOKALEMIA 09/01/2015 Rashad Hi MD I10 ESSENTIAL (PRIMARY) HYPERTENSION 09/01/2015 Rashad Hi MD K59.00 CONSTIPATION, UNSPECIFIED 09/01/2015 Rashad Hi MD M50.02 CERVICAL DISC DISORDER WITH MYELOPATHY , MID-CERVIC 09/01/2015 Rashad Hi MD R53.1 WEAKNESS 09/01/2015 Rashad Hi MD Z68.30 BODY MASS INDEX (BMI) 30.0-30.9, ADULT Procedures Code Description Performed By Performed On 3MA19RA FUSION 2-6 C JT W INTBD FUS DEV, POST APPR A Kolton RIDDLE MD, Christian S 09/01/2015 Results Test Result Range CBC - 08/31/15 21:10 MEAN CELL HGB 30.0 pg 27.0-33.0 MEAN CELL HGB CONCENTRATION 35.2 g/dL 32.0-37.0 MEAN CELL VOLUME 85.3 fl 80.0-100.0 RED BLOOD CELL 4.63 m/cumm 4.00-6.00 RED CELL DISTRIBUTION WIDTH 12.9 % 11.0- 15.6 WHITE BLOOD CELL 12.1 k/cumm 5.0-10.0 HEMOGLOBIN 13.9 gm/dL 14.0-18.0 HEMATOCRIT 39.5 % 40.0-54.0 PLATELET COUNT 262 k/cumm 150-400 METABOLIC PANEL, BASIC - 08/31/15 21:10 POTASSIUM 3.6 mmol/L 3.5-5.3 EST GFR (MDRD) > 60 mL/min > 59 ANION GAP 9 mmol/L 5-15 EST CrCl (CG) > 60 mL/min > 59 GLUCOSE 261 mg/dL 70-99 CALCIUM 8.4 mg/dL 8.5-10.1 BLOOD UREA NITROGEN 15 mg/dL 7-20 CREATININE 0.9 mg/dL 0.7-1.3 SODIUM 136 mmol/L 135-148 CHLORIDE 104 mmol/L 98-110 CARBON DIOXIDE 23 mmol/L 21-32 GLUCOSE (POC) - 08/31/15 22:04 GLUCOSE (POC) 248 mg/dL 70-99 MRSA SURVEILLANCE SCREEN - 09/01/15 04:00 Microbiology PROTHROMBIN TIME WITH INR - 09/01/15 04:55 INTERNATIONAL NORMAL RATIO 1.1 0.9-1.1 PROTHROMBIN TIME 11.8 sec 9.3-12.2 METABOLIC PANEL, COMPREHN - 09/01/15 04:55 POTASSIUM 3.4 mmol/L 3.5-5.3 EST GFR (MDRD) > 60 mL/min > 59 ANION GAP 9 mmol/L 5-15 EST CrCl (CG) > 60 mL/min > 59 GLUCOSE 160 mg/dL 70-99 CALCIUM 8.4 mg/dL 8.5-10.1 BLOOD UREA NITROGEN 15 mg/dL 7-20 CREATININE 0.9 mg/dL 0.7-1.3 SODIUM 137 mmol/L 135-148 CHLORIDE 105 mmol/L 98-110 AST/SGOT 11 Units/L 10-37 ALT/SGPT 28 Units/L < 66 CARBON DIOXIDE 23 mmol/L 21-32 TOTAL PROTEIN 6.6 gm/dL 6.4-8.2 ALBUMIN 3.3 gm/dL 3.4-5.0 BILI TOTAL 0.5 mg/dL 0.0-1.0 ALKALINE PHOSPHATASE TOTAL 65 IU/L 45- 117 CBC - 09/01/15 04:55 MEAN CELL HGB 29.7 pg 27.0-33.0 MEAN CELL HGB CONCENTRATION 34.5 g/dL 32.0-37.0 MEAN CELL VOLUME 85.9 fl 80.0-100.0 RED BLOOD CELL 4.48 m/cumm 4.00-6.00 RED CELL DISTRIBUTION WIDTH 13.0 % 11.0- 15.6 WHITE BLOOD CELL 14.5 k/cumm 5.0-10.0 HEMOGLOBIN 13.3 gm/dL 14.0-18.0 HEMATOCRIT 38.5 % 40.0-54.0 PLATELET COUNT 258 k/cumm 150-400 HEMOGLOBIN A1C - 09/01/15 04:55 HEMOGLOBIN A1C 9.4 % < 5.7 GLUCOSE (POC) - 09/01/15 05:27 GLUCOSE (POC) 149 mg/dL 70-99 GLUCOSE (POC) - 09/01/15 09:59 GLUCOSE (POC) 254 mg/dL 70-99 GLUCOSE (POC) - 09/01/15 14:23 GLUCOSE (POC) 138 mg/dL 70-99 GLUCOSE (POC) - 09/01/15 16:31 GLUCOSE (POC) 116 mg/dL 70-99 GLUCOSE (POC) - 09/01/15 20:46 GLUCOSE (POC) 190 mg/dL 70-99 GLUCOSE (POC) - 09/01/15 23:04 GLUCOSE (POC) 234 mg/dL 70-99 CBC - 09/02/15 05:11 MEAN CELL HGB 30.1 pg 27.0-33.0 MEAN CELL HGB CONCENTRATION 34.4 g/dL 32.0-37.0 MEAN CELL VOLUME 87.5 fl 80.0-100.0 RED BLOOD CELL 4.49 m/cumm 4.00-6.00 RED CELL DISTRIBUTION WIDTH 12.9 % 11.0- 15.6 WHITE BLOOD CELL 13.2 k/cumm 5.0-10.0 HEMOGLOBIN 13.5 gm/dL 14.0-18.0 HEMATOCRIT 39.3 % 40.0-54.0 PLATELET COUNT 229 k/cumm 150-400 METABOLIC PANEL, BASIC - 09/02/15 05:11 POTASSIUM 4.0 mmol/L 3.5-5.3 EST GFR (MDRD) > 60 mL/min > 59 ANION GAP 6 mmol/L 5-15 EST CrCl (CG) > 60 mL/min > 59 GLUCOSE 199 mg/dL 70-99 CALCIUM 7.7 mg/dL 8.5-10.1 BLOOD UREA NITROGEN 15 mg/dL 7-20 CREATININE 0.8 mg/dL 0.7-1.3 SODIUM 135 mmol/L 135-148 CHLORIDE 101 mmol/L 98-110 CARBON DIOXIDE 28 mmol/L 21-32 GLUCOSE (POC) - 09/02/15 05:12 GLUCOSE (POC) 184 mg/dL 70-99 GLUCOSE (POC) - 09/02/15 10:25 GLUCOSE (POC) 186 mg/dL 70-99 GLUCOSE (POC) - 09/02/15 12:57 GLUCOSE (POC) 110 mg/dL 70-99 GLUCOSE (POC) - 09/02/15 15:19 GLUCOSE (POC) 82 mg/dL 70-99 GLUCOSE (POC) - 09/02/15 21:13 GLUCOSE (POC) 124 mg/dL 70-99 GLUCOSE (POC) - 09/03/15 06:38 GLUCOSE (POC) 106 mg/dL 70-99 GLUCOSE (POC) - 09/03/15 10:56 GLUCOSE (POC) 131 mg/dL 70-99 GLUCOSE (POC) - 09/03/15 16:18 GLUCOSE (POC) 106 mg/dL 70-99 GLUCOSE (POC) - 09/03/15 21:19 GLUCOSE (POC) 141 mg/dL 70-99 GLUCOSE (POC) - 09/04/15 05:30 GLUCOSE (POC) 98 mg/dL 70-99 GLUCOSE (POC) - 09/04/15 10:14 GLUCOSE (POC) 130 mg/dL 70-99 GLUCOSE (POC) - 09/04/15 15:06 GLUCOSE (POC) 191 mg/dL 70-99 GLUCOSE (POC) - 09/04/15 21:00 GLUCOSE (POC) 161 mg/dL 70-99 GLUCOSE (POC) - 09/05/15 05:29 GLUCOSE (POC) 151 mg/dL 70-99 GLUCOSE (POC) - 09/05/15 10:42 GLUCOSE (POC) 256 mg/dL 70-99 GLUCOSE (POC) - 09/05/15 15:04 GLUCOSE (POC) 177 mg/dL 70-99 GLUCOSE (POC) - 09/05/15 20:48 GLUCOSE (POC) 153 mg/dL 70-99 GLUCOSE (POC) - 09/06/15 05:35 GLUCOSE (POC) 179 mg/dL 70-99 GLUCOSE (POC) - 09/06/15 10:44 GLUCOSE (POC) 232 mg/dL 70-99 GLUCOSE (POC) - 09/06/15 12:07 GLUCOSE (POC) 196 mg/dL 70-99 GLUCOSE (POC) - 09/06/15 16:14 GLUCOSE (POC) 210 mg/dL 70-99 GLUCOSE (POC) - 09/06/15 20:24 GLUCOSE (POC) 246 mg/dL 70-99 GLUCOSE (POC) - 09/06/15 22:04 GLUCOSE (POC) 165 mg/dL 70-99 CBC - 09/07/15 04:57 MEAN CELL HGB 30.0 pg 27.0-33.0 MEAN CELL HGB CONCENTRATION 35.1 g/dL 32.0-37.0 MEAN CELL VOLUME 85.7 fl 80.0-100.0 RED BLOOD CELL 4.96 m/cumm 4.00-6.00 RED CELL DISTRIBUTION WIDTH 12.7 % 11.0- 15.6 WHITE BLOOD CELL 10.8 k/cumm 5.0-10.0 HEMOGLOBIN 14.9 gm/dL 14.0-18.0 HEMATOCRIT 42.5 % 40.0-54.0 PLATELET COUNT 315 k/cumm 150-400 METABOLIC PANEL, BASIC - 09/07/15 04:57 POTASSIUM 3.6 mmol/L 3.5-5.3 EST GFR (MDRD) > 60 mL/min > 59 ANION GAP 7 mmol/L 5-15 EST CrCl (CG) > 60 mL/min > 59 GLUCOSE 150 mg/dL 70-99 CALCIUM 8.4 mg/dL 8.5-10.1 BLOOD UREA NITROGEN 17 mg/dL 7-20 CREATININE 0.8 mg/dL 0.7-1.3 SODIUM 134 mmol/L 135-148 CHLORIDE 99 mmol/L 98-110 CARBON DIOXIDE 28 mmol/L 21-32 MAGNESIUM - 09/07/15 04:57 MAGNESIUM 1.8 mg/dL 1.8-2.4 GLUCOSE (POC) - 09/07/15 06:03 GLUCOSE (POC) 146 mg/dL 70-99 GLUCOSE (POC) - 09/07/15 10:29 GLUCOSE (POC) 260 mg/dL 70-99 GLUCOSE (POC) - 09/07/15 11:15 GLUCOSE (POC) 228 mg/dL 70-99 GLUCOSE (POC) - 09/07/15 15:02 GLUCOSE (POC) 163 mg/dL 70-99 GLUCOSE (POC) - 09/07/15 21:01 GLUCOSE (POC) 201 mg/dL 70-99 GLUCOSE (POC) - 09/08/15 06:05 GLUCOSE (POC) 118 mg/dL 70-99 GLUCOSE (POC) - 09/08/15 11:32 GLUCOSE (POC) 194 mg/dL 70-99 Encounters ACCT No. Visit Date/Time Discharge Status Pt. Type Provider Facility Loc./Unit Complaint [id number] 09/12/2015 13:13:00 2014 13:13:00 DIS Outpatient Leo HERNANDEZ, Melisa Purdy [facility] W.WRAC [id number] 09/01/2015 11:44:00 2014 14:25:00 DIS Inpatient Kolton HERNANDEZ, Rashad [facility] W.9TN
--- OUTSIDE RECORDS SUMMARY | 2017-01-16 16:19 | XMS REPORT ---
Author Erica Cueto [facility] eClinicalWorks Address Unknown Phone Unavailable Care Team Providers Care Homemaking Rehabilitation Consultant Name Role Phone Erica Alejandro CP Unavailable Allergies No Known Allergies Problems Problem Type Condition Code Onset Dates Condition Status Assessment Diabetes with other specified manifestations, type II or unspecified type, not stated as uncontrolled 250.80 Active Problem Pure hypercholesterolemia 272.0 Active Problem Other and unspecified hyperlipidemia 272.4 Active Problem Unspecified essential hypertension 401.9 Active Assessment Unspecified essential hypertension 401.9 Active Assessment Pure hypercholesterolemia 272.0 Active Problem Diabetes with other specified manifestations, type II or unspecified type, not stated as uncontrolled 250.80 Active Assessment Other acute sinusitis 461.8 Active Medications Medication Code System Code Instructions Start Date End Date Status Dosage NovoLog [facility] [address]-00 100 UNIT/ML Subcutaneous with meals 1 unit per 10 carbs Lisinopril [facility] [address]-04 20 Milligram Orally Once a day 1 tablet Tricor [facility] [address]-60 145 MG Orally Once a day 1 tablet Lantus [facility] [address]-52 100 UNIT/ML Subcutaneous twice a day 80 units Glucophage [facility] [address]-97 1000 MG Orally Twice a day 1 tablet with meals Lisinopril-Hydrochlorothiazide [facility] [id number] 0 Takeone (1) tablet(s)daily Aspirin [facility] [address]-59 81 MG Orally Once a day 1 tablet Lipitor [facility] [address]-64 40 Milligram Takeone (1)tablet(s)daily Procedures Procedure Coding System Code Date IH MicroAlb/Creat Ratio, Urine CPT-4 53119 November 24, 2014 IH MicroAlb/Creat Ratio, Urine CPT-4 66395 November 24, 2014 COMPLETE CBC W/AUTO DIFF WBC CPT-4 61337 November 24, 2014 LIPID PANEL CPT-4 07810 November 24, 2014 COMPREHENSIVE METABOLIC PANEL CPT-4 67032 November 24, 2014 OFFICE VISIT, EST-MOD. COMPLEXITY (25 MIN) CPT-4 42974 November 24, 2014 TSH CPT-4 73507 November 24, 2014 Vital Signs Date/Time: November 24, 2014 Height 70 in Weight 235.8 lbs Temperature 98.3 F Blood Pressure Diastolic 80 mm Hg Blood Pressure Systolic 120 mm Hg Cardiac Monitoring Heart Rate 80 /min BMI 33.83 Index Respiratory Rate 16 /min Results No Known Results Summary Purpose eClinicalWorks Submission
--- OUTSIDE RECORDS SUMMARY | 2017-01-16 16:19 | XMS REPORT ---
Author Author Erica Alejandro [facility] eClinicalWorks Address Unknown Phone Unavailable Care Team Providers Care Senior Financial Name Role Phone Erica Alejandro CP Unavailable [...] Start Date End Date Status Dosage NovoLog [facility] [address]-86 100 UNIT/ML Subcutaneous with meals 1 unit per 10 carbs Results No Known Results Summary Purpose eClinicalWorks Submission
--- OUTSIDE RECORDS SUMMARY | 2017-01-16 16:19 | XMS REPORT ---
Author Author Ryan Sullivan Organization eClinicalWorks Address Unknown Phone Unavailable Care Team Providers Care Chemical Instrumentation Officer Name Role Phone Ryan Sullivan CP Unavailable Allergies No Known Allergies Problems [...] Start Date End Date Status Dosage Lisinopril [facility] [address]-30 20 Milligram Orally Once a day 1 tablet Glucophage [facility] [id number] 1000 MG TAKE ONE (1) TABLET(S) TWICE DAILY Lisinopril-Hydrochlorothiazide [facility] [address]-49 20-25 MG Orally Once a day Takeone (1)tablet(s)daily Lantus [facility] [address]-97 100 UNIT/ML Subcutaneous as directed 80 units in the am and 70 units in the pm. do this daily. Tricor [facility] [address]-66 145 MG Orally Once a day 1 tablet Lipitor [facility] [address]-30 40 Milligram Takeone (1)tablet(s)daily Aspirin [facility] [address]-46 81 MG Orally Once a day 1 tablet NovoLog [facility] [address]-55 100 UNIT/ML Subcutaneous with meals 1 unit per 10 carbs Procedures Procedure Coding System Code Date COMPLETE CBC W/AUTO DIFF WBC CPT-4 72355 2015 TSH CPT-4 39740 2015 HEMOGLOBIN A1C, IN HOUSE CPT-4 00881 2015 LIPID PANEL CPT-4 47134 2015 IH MicroAlb/Creat Ratio, Urine CPT-4 90189 2015 IH MicroAlb/Creat Ratio, Urine CPT-4 20907 2015 COMPREHENSIVE METABOLIC PANEL CPT-4 42672 2015 URINALYSIS, IN HOUSE CPT-4 78475 2015 Results Name Result Date Reference Range Unit Abnormality Flag In House HB A1c Summary Purpose eClinicalWorks Submission
--- OUTSIDE RECORDS SUMMARY | 2017-01-16 16:19 | XMS REPORT ---
Author Author Erica Alejandro [facility] eClinicalWorks Address Unknown Phone Unavailable Care Team Providers Care Fabrication Department Supervisor Name Role Phone Erica Alejandro CP [...] Start Date End Date Status Dosage Tricor [facility] [address]-70 160 MG Orally Once a day Jul 12, 2016 1 tablet with a meal Results No Known Results Summary Purpose eClinicalWorks Submission
--- OUTSIDE RECORDS SUMMARY | 2017-01-16 16:19 | XMS REPORT ---
Author Author Erica Alejandro [facility] eClinicalWorks Address Unknown Phone Unavailable Care Team Providers Care Manager Truck Name Role Phone Erica Alejandro CP Unavailable Allergies No Known Allergies Problems Problem Type Condition ICD-9 Code Onset Dates Condition Status Problem Pure hypercholesterolemia 272.0 Active Problem Other and unspecified hyperlipidemia 272.4 Active Problem Unspecified essential hypertension 401.9 Active Problem Diabetes with other specified manifestations, type II or unspecified type, not stated as uncontrolled 250.80 Active Medications No Known Medications Results No Known Results Summary Purpose eClinicalWorks Submission
--- OUTSIDE RECORDS SUMMARY | 2017-01-16 16:22 | XMS REPORT | Continuity of Care Document ---
Author Author [facility] Organization [facility] Address Unknown Phone Unavailable Allergies Active [...] Procedures Code Description Performed By Performed On [id number] FUSION 2-6 C JT W INTBD FUS [...] Status Pt. Type Provider Facility Loc./Unit Complaint [id number] 09/12/2015 13:13:00 2014 13:13:00 DIS Outpatient Leo HERNANDEZ, Melisa Purdy [facility] W.WRAC [id number] 09/01/2015 11:44:00 2014 14:25:00 DIS Inpatient [place] HERNANDEZ, Rashad [facility] W.9TN
--- OUTSIDE RECORDS SUMMARY | 2017-01-16 16:22 | XMS REPORT | Continuity of Care Document ---
Author Author [facility] Organization [facility] Address Unknown Phone Unavailable Support Name Relationship Address Phone SRINI DAVIES [place] [address] KIRSTEN WOODWARD MD Caregiver [facility] [address] [place] [address] [phone] LANDON CABRERA Next Of Kin [address] [place], [place] [id number] CP Insurance Providers Payer Name Policy Number Subscriber Name Relationship [employer] Other [id number] Dequan Cabrera 17 Self Advance Directives Directive [...] F (96.8 - 99.1) Temperature (Calculated Celsius) [phone] degrees C (36.0 - 37.3) Temperature Source [...] Has specimen been collected/obtained? Y Urine Specific [place] May 22, 2012 6:30pm 1.005 L - [...] 06, 2012 1:19pm LAB TEST FORM REQUEST [id number] - HDL Cholesterol Direct August 06, 2012 [...]
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
[2017-01-16] MEDS ORDERED: POTA20TA87 PO (16:34)
[2017-01-16] MEDS ORDERED: MAGN400T6 PO (16:34)
[2017-01-16] MEDS ORDERED: FENO160T12 PO (16:34)
[2017-01-16] MEDS ORDERED: GABA-336 PO (16:34)
[2017-01-16] MEDS ORDERED: NAPR500T PO (17:00)
[2017-01-16] MEDS ORDERED: CYCL-375 PO (17:00)
[2017-01-16] MEDS ORDERED: HYDR-4246 PO (17:00)
[2017-01-16 17:14] VITALS: BP 144/67; PULSE 65; RESP 18; TEMP 98.1; O2SAT 98
--- NOTE | 2017-01-16 17:14 | NUR ---
DISCHARGE WRITTEN INSTRUCTIONS WITH FLEXERIL, NORCO, AND NAPROSYN RX REVIEWED AND SENT WITH PT. PT VERBALIZES UNDERSTANDING OF DI AND MEDICATIONS, DENIES QUESTIONS. CONTINUES TO BE COMPLAINT FREE AT THIS TIME. PT AMBULATES OUT OF ER WITH STEADY GAIT ACCOMP BY SPOUSE AT THIS TIME.
== END 2017-01-16 17:14 | disposition home or self-care (01) ==
LOC: ED 16:13
DX: Z04.1 Encounter for examination and observation following transport accident (principal); E11.9 Type 2 diabetes mellitus without complications; Z79.4 Long term (current) use of insulin; V44.5XXA Car driver injured in collision with heavy transport vehicle or bus in traffic accident, initial encounter; Y92.411 Interstate highway as the place of occurrence of the external cause; Y93.89 Activity, other specified; Y99.8 Other external cause status
CPT/HCPCS: 82948